=== PATIENT | male | born 1980 | race Caucasian/White ===

== ENCOUNTER 2025-05-12 10:52 | Emergency (ER) | payer BC ==
[~2025-05-12] VITALS: Ht 188 cm; Wt 86.2 kg
--- NOTE | 2025-05-12 11:04 | ERN ---
General Chief Complaint: Abdominal Pain Stated Complaint: LEFT DISTAL ABDOMINAL PAIN Time Seen by MD: 10:53 Time Seen by Midlevel: 10:53 Source: patient History of Present Illness Initial Comments The patient is a 44-year-old male presenting to the emergency department for evaluation of left lower quadrant abdominal pain. The patient reports noticing a hernia to his left lower quadrant that goes down to his groin area. He noticed this several months ago but it has progressively worsened. Today he reports increased pain after physical activity. He is currently refusing any controlled narcotics and admits to recently getting out of a drug rehabilitation program. Allergies: Coded Allergies: No Known Drug Allergies (Unverified Allergy, Unknown, 05/12/25) Past Medical History Past Medical History: COPD Medical History Other: HERNIA Past Surgical History: Other Surgical History Other: X2 HERNIA REPAIR IN YOUTH ROS Dictation CONSTITUTIONAL: Negative except for HPI HEAD/FACE: Negative except for HPI EENT: Negative except for HPI RESPIRATORY: Negative except for HPI GASTROINTESTINAL/ABDOMINAL: Negative except for HPI GENITOURINARY: Negative except for HPI MUSCULOSKELETAL: Negative except for HPI INTEGUMENTARY: Negative except for HPI NEUROLOGICAL/PSYCH: Negative except for HPI HEMATOLOGIC/LYMPHATIC: Negative except for HPI All Systems Negative, Except as noted above. 13 point review of systems assessed and all negative except for above. Physical Exam Physical Exam Dictation Vital Signs reviewed General Appearance: Alert, oriented x 3, no acute distress, well developed, nourished. Head and Face: non-traumatic. Eyes: PERRL, pink conjunctivas, eyelid no trauma, anterior chamber with arcus senilis. Ears: Pinnas intact and no signs of trauma or erythema ear canals clear and no discharge TM no erythema Nose: No discharge, no bleeding. Oropharynx: Mouth normal, tongue pink, pharynx clear,no erythema, tonsils no exudates, no abscesses noted, mucous membrane moist Neck: Supple, non-tender, no thyromegaly, no masses, no JVD, no bruits Breast:Deferred Chest:No tenderness, no crepitus, no paradoxical movement, no retractions Lungs:Clear, well-ventilated, symmetric, no rales, no wheezing, no rhonchi, no stridor, good breath sounds bilaterally Heart: Regular rate, regular rhythm, no murmur, no gallops Vascular: no peripheral edema, Abdomen: Soft, positive bowel sounds, nondistended, no guarding, Left lower quadrant abdominal tenderness, no rebound, no masses no hepatomegaly, no splenomegaly, no Kan's sign, left lower quadrant hernia extending to the l eft groin Rectal: Deferred Genital: Deferred Neurological: Normal speech, motor function intact, sensory function intact Musculoskeletal: Neck nontender, full range of motion, back nontender, full range of motion, Extremities: nontender, full range of motion Skin: Color pink, dry, no turgor, no rash, no lacerations, no abrasions, no contusions. Lymphatic: Deferred Results Laboratory and Microbiology Lab and Micro Result Laboratory Tests Test 05/12/25 11:03 05/12/25 11:15 White Blood Count 5.9 K/uL (4.8-10.8) Red Blood Count 4.37 MIL/uL (4.50-6.20) L Hemoglobin 14.4 g/dL (14.0-18.0) Hematocrit 41.8 % (42-54) L Mean Corpuscular Volume 95.7 fL (79-99) Mean Corpuscular Hemoglobin 33.0 pg (27.0-33.0) Mean Corpuscular Hemoglobin Concent 34.4 g/dL (32.0-36.0) Red Cell Distribution Width 13.1 % (11.0-15.5) Platelet Count 244 K/uL (130-400) Mean Platelet Volume 9.3 fL (7.5-10.5) Immature Granulocyte % (Auto) 0.3 % (0-1) Neutrophils (%) (Auto) 56.1 % (40.0-77.0) Lymphocytes (%) (Auto) 31.7 % (21.0-51.0) Monocytes (%) (Auto) 10.3 % (3.0-13.0) Eosinophils (%) (Auto) 1.3 % (0.0-8.0) Basophils (%) (Auto) 0.3 % (0.0-5.0) Neutrophils # (Auto) 3.3 K/uL (1.8-7.7) Lymphocytes # (Auto) 1.9 K/uL (1.0-4.8) Monocytes # (Auto) 0.6 K/uL (0.1-1.0) Eosinophils # (Auto) 0.08 K/uL (0.00-0.70) Basophils # (Auto) 0.02 K/uL (0.00-0.20) Absolute Immature Granulocyte (auto 0.02 K/uL (0-1) Nucleated Red Blood Cells 0.0 % (0.0-0.19) Sodium Level 139 mmol/L (136-145) Potassium Level 4.3 mmol/L (3.5-5.1) Chloride Level 104 mmol/L (101-111) Carbon Dioxide Level 31 mmol/L (21-32) Blood Urea Nitrogen 15 mg/dL (7-18) Creatinine 0.8 mg/dL (0.5-1.3) Glomerular Filtration Rate Calc 113 mL/min (>90) Random Glucose 90 mg/dL (70-105) Total Calcium 8.9 mg/dL (8.5-10.1) Urine Color COLORLESS (YELLOW) Urine Appearance CLEAR (CLEAR) Urine pH 7.5 (5.0-8.0) Urine Specific [place] 1.006 (1.001-1.031) Urine Protein NEGATIVE mg/dL (NEGATIVE) Urine Glucose (UA) NEGATIVE mg/dL (NEGATIVE) Urine Ketones NEGATIVE mg/dL (NEGATIVE) Urine Occult Blood +- (TRACE) (NEGATIVE) H Urine Nitrate NEGATIVE (NEGATIVE) Urine Bilirubin NEGATIVE mg/dL (NEGATIVE) Urine Urobilinogen 0.2 mg/dL (0.2-1.0) Urine Leukocyte Esterase NEGATIVE Jennifer/uL Urine RBC 2-5 /HPF (0-1) H Urine WBC 0-1 /HPF (0-1) Urine Bacteria None /HPF (None Seen) Labs Reviewed?: Yes MDM MDM: The patient is a 44-year-old male presenting to the emergency department for evaluation of left lower quadrant abdominal pain. The patient reports noticing a hernia to his left lower quadrant that goes down to his groin area. He noticed this several months ago but it has progressively worsened. Today he reports increased pain after physical activity. He is currently refusing any controlled narcotics and admits to recently getting out of a drug rehabilitation program. On physical examination there was an obvious bruise to his left groin area consistent with what appears to be a hernia. The hernia does not extend into the scrotal area. There was the remainder of his physical examination is unremarkable. A CT scan of the abdomen/pelvis reveals no hernia however on physical examination there is an apparent hernia. CT shows no evidence of strangulation. We will have patient follow up with General surgery outpatient. Differential diagnosis: There are no social concerns with this patient. Prescription drug management Prescriptions will include: Medical management and examination interpretation discussions were had by me with other qualified healthcare professionals as indicated for the patient's care. ED Course Orders Procedure Category Date Status Time Cbc With Differential LAB 05/12/25 Complete 10:57 Basic Metabolic Panel LAB 05/12/25 Complete 10:57 Urinalysis Profile LAB 05/12/25 Complete 10:57 Ct Abdomen/Pelvis CT 05/12/25 Resulted W/Contrast 10:57 Iohexol (Omnipaque) PHA 05/12/25 Complete 11:45 Current Medications Medications (Trade) Dose Ordered Sig/Lizbeth Route PRN Reason Start Time Stop Time Status Last Admin Dose Admin Iohexol (Omnipaque) 35,000 mg STK-MED ONCE IV 05/12/25 11:45 05/12/25 11:45 DC Vital Signs Date Time Temp Pulse Resp B/P (MAP) Pulse Ox O2 Delivery O2 Flow Rate FiO2 05/12/25 13:36 97.9 62 16 124/72 98 Room Air* 0 21 05/12/25 11:18 97.9 58 16 120/76 98 Room Air* 0 21 05/12/25 10:53 97.9 58 16 120/76 98 Room Air 0 DX & DISP Disposition: Discharge Departure Impression: Primary Impression: Left groin hernia Condition: Stable Referrals: SELF,REFERRAL (PCP) SHAUNNA OWENS MD Time of Disposition: 13:19 I have reviewed the case, and I agree with, Diagnosis and Plan I performed the substantive portion of the visit. I have reviewed and personally made and approve the management plan that is documented in the note by myself or the SELINA. I acknowledge for responsibility for the patient's management plan. ISIDORO GARCIA May 12, 2025 11:04
[2025-05-12 11:10] LABS: IMMATURE GRANULOCYTE ABSOLUTE 0.02 K/uL (0-1); NUCLEATED RED BLOOD CELLS 0.0 % (0.0-0.19); PLATELET COUNT (AUTO) 244 K/uL (130-400); RED BLOOD CELL COUNT(AUTO) 4.37 MIL/uL (4.50-6.20); RED CELL DISTRIBUTION WIDTH 13.1 % (11.0-15.5); WHITE BLOOD COUNT (AUTO) 5.9 K/uL (4.8-10.8)
[2025-05-12 11:17] LABS: CREATININE 0.8 mg/dL (0.5-1.3); GLOMERULAR FILTR. RATE CALC 113.0 mL/min (>90); GLUCOSE,RANDOM 90.0 mg/dL (70-105); SODIUM SERUM 139.0 mmol/L (136-145); UREA NITROGEN, BLOOD 15.0 mg/dL (7-18)
[2025-05-12 11:24] LABS: APPEARANCE,URINE CLEAR (CLEAR); GLUCOSE, URINE (UA) NEGATIVE (NEGATIVE); LEUKOCYTE ESTERASE ,URINE NEGATIVE Leu/uL (NEGATIVE); NITRATE,URINE NEGATIVE (NEGATIVE); OCCULT BLOOD,URINE +- (TRACE) (NEGATIVE)
[2025-05-12] MEDS ORDERED: IOHEXOL 350 MG/ML 100ML INFUS..BTL IV ONE (11:45)
[2025-05-12 11:55] LABS: ADD UA MICROSCOPIC YES
--- NOTE | 2025-05-12 12:45 | HMCIMG ---
EXAM: CT Abdomen and Pelvis with IV contrast CLINICAL HISTORY: LLQ abd pain, visible hernia, r/o incarcerated hernia TECHNIQUE: Axial computed tomography images of the abdomen and pelvis with intravenous contrast. CONTRAST: with intravenous contrast. COMPARISON: None provided. FINDINGS: FINDINGS: LUNG BASES: Subtle subpleural interlobular septal thickening involving the posterobasal segment of the bilateral lower lobes. No pleural effusions are seen. LIVER: The liver is enlarged; the right hepatic lobe measures up to 21 cm. There is no focal hepatic abnormality or intrahepatic biliary ductal dilatation Portal vein appears dilated, measuring approximately 20 mm at the celso. GALLBLADDE AND BILE DUCTS: The gallbladder appears within normal limits. No radioopaque gallstones are seen. No biliary ductal dilatation is evident. PANCREAS: Unremarkable. SPLEEN: Unremarkable. ADRENAL GLANDS: Unremarkable. KIDNEYS, URETERS, AND BLADDER: The kidneys appear within normal limits. There is no hydronephrosis or hydroureter. No urinary calculi are seen. STOMACH AND BOWEL: Unremarkable appearance of the stomach and bowel. No evidence of bowel obstruction. No evidence suggesting enteritis or colitis. There is no hernia present. PERITONEUM: No free fluid. No free air. LYMPH NODES: No lymphadenopathy is evident. REPRODUCTIVE: Unremarkable as visualized. VASCULATURE: No evidence of abdominal aortic aneurysm. 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 Diffuse disc bulge with postero-central disc protrusion at the L4-L5 intervertebral disc level, causing indentation over the anterior thecal sac and causing mild canal stenosis. Spinal canal diameter at the L4-L5 intervertebral disc level measures 9.5 mm and needs MRI correlation. No aggressive appearing osseous lesion. SOFT TISSUES: Unremarkable. IMPRESSION: No acute abdominal or pelvic pathology. No hernia. No soft tissue abnormality in the left lower quadrant to explain the reported hernia. Hepatomegaly with right hepatic lobe measuring up to 21 cm. Portal vein dilatation measuring 20 mm. /[place]
[2025-05-12 13:36] VITALS: BP 124/72; PULSE 62; RESP 16; TEMP 97.9; O2SAT 98
== END 2025-05-12 13:37 | disposition home or self-care (01) ==
LOC: EDH 10:52
DX: K40.90 Unilateral inguinal hernia, without obstruction or gangrene, not specified as recurrent (principal); Z98.890 Other specified postprocedural states
CPT/HCPCS: 99284; 74177; 80048; 85025; 81001; 36415; Q9967

== ENCOUNTER 2025-07-16 19:05 | Emergency (ER) | payer BC ==
[~2025-07-16] VITALS: Ht 188 cm; Wt 74.8 kg
--- NOTE | 2025-07-16 19:36 | ERN ---
General Chief Complaint: Psych Evaluation Stated Complaint: MEDICATION REFILL, DETOX Time Seen by MD: 19:18 Source: patient History of Present Illness Initial Comments 45-year-old male attempting to stay sober recently fell off the wagon and comes in after drinking and taking speed. Has recently completed an inpatient rehabilitation stay and stated that afterwards he could not refill his medications and started drinking. Allergies: Coded Allergies: No Known Drug Allergies (Unverified Allergy, Unknown, 05/12/25) Past Medical History Past Medical History: Bipolar, COPD, Schizophrenia, Other Medical History Other: HERNIA, PTSD, multisubstance abuse Past Surgical History: Other Surgical History Other: X2 HERNIA REPAIR IN YOUTH, JAW Constitutional: (-) chills, (-) diaphoresis, (-) fever, (-) malaise, (-) weakness, (-) other documentation EENTM: (-) eye pain, (-) blurred vision, (-) tearing, (-) double vision, (-) ear pain, (-) ear discharge, (-) nose pain, (-) nose congestion, (-) throat pain, (-) Throat swelling, (-) mouth pain, (-) tooth pain, (-) mouth swelling, (-) other documentation Respiratory: (-) cough, (-) orthopnea, (-) short of breath, (-) stridor, (-) wheezing, (-) other documentation Cardiovascular: (-) chest pain, (-) edema, (-) palpitations, (-) syncope, (-) dyspnea on exertion, (-) other documentation Gastrointestinal/Abdominal: (+) nausea, (+) vomiting, (+) diarrhea Genitourinary: (-) penile discharge, (-) dysuria, (-) frequency, (-) hematuria, (-) pain, (-) other documentation Musculoskeletal: (-) Neck pain, (-) back pain, (-) Flank Pain, (-) joint pain, (-) joint swelling, (-) muscle pain, (-) muscle stiffness, (-) gout, (-) other documentation Psych: (+) anxiety Physical Exam General Appearance: (+) moderate distress Orientation: (+) alert, (+) oriented x 3 Head/Face Trauma: No Eye: bilateral eye normal inspection, bilateral eye PERRL, bilateral eye EOMI Ear, Nose, Throat: (+) hearing grossly normal, (+) normal ENT inspection, (+) moist mucous membraine Neck: (+) normal inspection, (+) supple, (+) full range of motion Respiratory: (+) chest non-tender, (+) lungs clear, (+) well ventilated Heart: (+) regular, (+) no gallop Vascular: (+) no edema, (+) normal peripheral pulse Gastrointestinal: (+) soft, (+) non-tender, (+) bowel sound present Genital Comment Left inguinal hernia based on location it appears direct. Back: (+) normal inspection, (+) no CVA tenderness Extremities: (+) normal range of motion Results Laboratory and Microbiology Lab and Micro Result Laboratory Tests Test 07/16/25 19:36 07/16/25 19:44 Urine Color LIGHT-YELLOW (YELLOW) Urine Appearance CLEAR (CLEAR) Urine pH 6.5 (5.0-8.0) Urine Specific [place] 1.012 (1.001-1.031) Urine Protein NEGATIVE mg/dL (NEGATIVE) Urine Glucose (UA) NEGATIVE mg/dL (NEGATIVE) Urine Ketones NEGATIVE mg/dL (NEGATIVE) Urine Occult Blood +- (TRACE) (NEGATIVE) H Urine Nitrate NEGATIVE (NEGATIVE) Urine Bilirubin NEGATIVE mg/dL (NEGATIVE) Urine Urobilinogen 0.2 mg/dL (0.2-1.0) Urine Leukocyte Esterase NEGATIVE Jennifer/uL Urine RBC 2-5 /HPF (0-1) H Urine WBC 0-1 /HPF (0-1) Urine Bacteria None /HPF (None Seen) Urine Opiates Screen NEGATIVE (NEGATIVE) Urine Barbiturates Screen NEGATIVE (NEGATIVE) Urine Phencyclidine Screen NEGATIVE (NEGATIVE) Urine Amphetamines Screen POSITIVE (NEGATIVE) H Urine Benzodiazepines Screen NEGATIVE (NEGATIVE) Urine Cocaine Screen NEGATIVE (NEGATIVE) Urine Marijuana (THC) Screen POSITIVE (NEGATIVE) H White Blood Count 6.3 K/uL (4.8-10.8) Red Blood Count 4.70 MIL/uL (4.50-6.20) Hemoglobin 15.6 g/dL (14.0-18.0) Hematocrit 44.4 % (42-54) Mean Corpuscular Volume 94.5 fL (79-99) Mean Corpuscular Hemoglobin 33.2 pg (27.0-33.0) H Mean Corpuscular Hemoglobin Concent 35.1 g/dL (32.0-36.0) Red Cell Distribution Width 13.5 % (11.0-15.5) Platelet Count 371 K/uL (130-400) Mean Platelet Volume 8.9 fL (7.5-10.5) Immature Granulocyte % (Auto) 0.2 % (0-1) Neutrophils (%) (Auto) 59.7 % (40.0-77.0) Lymphocytes (%) (Auto) 29.7 % (21.0-51.0) Monocytes (%) (Auto) 8.6 % (3.0-13.0) Eosinophils (%) (Auto) 1.3 % (0.0-8.0) Basophils (%) (Auto) 0.5 % (0.0-5.0) Neutrophils # (Auto) 3.8 K/uL (1.8-7.7) Lymphocytes # (Auto) 1.9 K/uL (1.0-4.8) Monocytes # (Auto) 0.5 K/uL (0.1-1.0) Eosinophils # (Auto) 0.08 K/uL (0.00-0.70) Basophils # (Auto) 0.03 K/uL (0.00-0.20) Absolute Immature Granulocyte (auto 0.01 K/uL (0-1) Nucleated Red Blood Cells 0.0 % (0.0-0.19) Sodium Level 139 mmol/L (136-145) Potassium Level 3.7 mmol/L (3.5-5.1) Chloride Level 100 mmol/L (101-111) L Carbon Dioxide Level 29 mmol/L (21-32) Blood Urea Nitrogen 14 mg/dL (7-18) Creatinine 0.9 mg/dL (0.5-1.3) Glomerular Filtration Rate Calc 108 mL/min (>90) Random Glucose 95 mg/dL (70-105) Total Calcium 9.2 mg/dL (8.5-10.1) Magnesium Level 2.10 mg/dL (1.80-2.40) Total Bilirubin 0.4 mg/dL (0.2-1.0) Aspartate Amino Transf (AST/SGOT) 72 U/L (10-37) H Alanine Aminotransferase (ALT/SGPT) 45 U/L (12-78) Alkaline Phosphatase 113 U/L (50-136) Total Protein 7.2 g/dL (6.0-8.3) Albumin 3.9 g/dL (3.5-5.0) Lipase 36 U/L (16-77) Salicylates Level < 2.8 mg/dL (2.8-20.0) L Acetaminophen Level < 1 mcg/mL (10-29) L Serum Alcohol < 3 mg/dL (0-10) MDM Alcohol abuse methamphetamine abuse by history. We will order the usual labs, tox screen. IV fluids, thiamine folate, CMP CBC UA lipase. Patient's CBC is normal. Chemistry panel shows a mild hypochloremia and a mild elevation of the AST lipase is normal other LFTs are normal bilirubin is normal. Urine is negative for infection there is a little bit of blood in it. And serum alcohol is less than three, salicylates are negative acetaminophen is negative as well. Positive for THC positive for amphetamines. Patient is medically cleared to go to a rehab facility. We have called [facility] which is one block away they have some more admission. I have told the patient that he can walk two palms and check himself in. ED Course Orders Procedure Category Date Status Time Acetaminophen LAB 07/16/25 Complete 19:27 Alcohol, Blood LAB 07/16/25 Complete 19:27 Comprehensive LAB 07/16/25 Complete Metabolic Panel 19:27 Cbc With Differential LAB 07/16/25 Complete 19:27 Drug Screen Urine LAB 07/16/25 Complete 19:27 Magnesium LAB 07/16/25 Complete 19:27 Urinalysis Profile LAB 07/16/25 Complete 19:27 Lipase LAB 07/16/25 Complete 19:27 Thiamine Hcl (Vitamin PHA 07/17/25 Complete B-1) 09:00 Folic Acid 5 Mg/Ml PHA 07/16/25 Complete Vial (Folvite 5 Mg/Ml 19:30 Lactated Ringers PHA 07/16/25 Complete 1000ml (Lactated 19:27 Salicylate LAB 07/16/25 Complete 19:27 Thiamine Hcl (Vitamin PHA 07/16/25 In Process B-1) 20:00 Current Medications Medications (Trade) Dose Ordered Sig/Lizbeth Route PRN Reason Start Time Stop Time Status Last Admin Dose Admin Folic Acid (FolVITE 5 MG/ML VIAL) 1 mg ONCE ONCE IV 07/16/25 19:30 07/16/25 19:35 DC 07/16/25 20:05 Lactated Ringer's (Lactated Ringers 1000ml) 1,000 ml BOLUS STAT IV 07/16/25 19:27 07/16/25 19:34 DC 07/16/25 20:05 Thiamine HCl (Vitamin B-1) 100 mg DAILY IVP 07/16/25 20:00 08/15/25 19:59 07/16/25 20:06 Thiamine HCl (Vitamin B-1) 100 mg DAILY IVP 07/17/25 09:00 07/16/25 19:58 DC Vital Signs Date Time Temp Pulse Resp B/P (MAP) Pulse Ox O2 Delivery O2 Flow Rate FiO2 07/16/25 19:22 97.5 80 22 122/80 98 Room Air* 0 21 07/16/25 19:06 97.9 79 18 132/75 98 Room Air DX & DISP Disposition: Discharge Departure Impression: Primary Impression: Alcohol abuse Additional Impressions: Methamphetamine abuse, Tetrahydrocannabinol (THC) use disorder, mild, abuse Condition: Stable Additional Instructions: You have express pit and desire for rehabilitation from alcohol abuse. Your also stating that you are hearing things and seeing demons suggesting that your schizophrenia is active. I have done a laboratory analysis and you are medically cleared to go to rehab. I will discharge you from the emergency room and all you need to do is walk one block to [facility] and they will accept you. Please return to the emergency room if you find yourself abusing substances again or if you schizophrenia is unmanageable. Referrals: SELF,REFERRAL (PCP) AJ ESPARZA MD Jul 16, 2025 19:36
[2025-07-16 19:46] LABS: APPEARANCE,URINE CLEAR (CLEAR); GLUCOSE, URINE (UA) NEGATIVE (NEGATIVE); LEUKOCYTE ESTERASE ,URINE NEGATIVE Leu/uL (NEGATIVE); NITRATE,URINE NEGATIVE (NEGATIVE); OCCULT BLOOD,URINE +- (TRACE) (NEGATIVE)
[2025-07-16 19:47] LABS: ADD UA MICROSCOPIC YES
[2025-07-16 19:50] LABS: IMMATURE GRANULOCYTE ABSOLUTE 0.01 K/uL (0-1); NUCLEATED RED BLOOD CELLS 0.0 % (0.0-0.19); PLATELET COUNT (AUTO) 371 K/uL (130-400); RED BLOOD CELL COUNT(AUTO) 4.70 MIL/uL (4.50-6.20); RED CELL DISTRIBUTION WIDTH 13.5 % (11.0-15.5); WHITE BLOOD COUNT (AUTO) 6.3 K/uL (4.8-10.8)
[2025-07-16 19:53] LABS: AMPHET/METH SCREEN,URINE POSITIVE (NEGATIVE); BARBITURATE SCREEN, URINE NEGATIVE (NEGATIVE); CANNABINOID SCREEN,URINE POSITIVE (NEGATIVE); COCAINE SCREEN,URINE NEGATIVE (NEGATIVE)
[2025-07-16 20:00] LABS: CREATININE 0.9 mg/dL (0.5-1.3); GLOMERULAR FILTR. RATE CALC 108 mL/min (>90); GLUCOSE,RANDOM 95 mg/dL (70-105); SODIUM SERUM 139 mmol/L (136-145); UREA NITROGEN, BLOOD 14 mg/dL (7-18)
[2025-07-16 20:04] LABS: ALCOHOL, BLOOD < 3 mg/dL (0-10); ASPARTATE AMINOTRANSFERASE 72 U/L (10-37); TOTAL PROTEIN, SERUM 7.2 g/dL (6.0-8.3)
[2025-07-16] MEDS: LACTATED RINGERS 1000ML IV STA (20:05)
[2025-07-16] MEDS: THIAMINE HCL 100 MG/ML 2ML VIAL IVP SCH (20:06)
[2025-07-16] MEDS: MIDAZOLAM HCL SYRUP 10 MG/5 ML 5ML BOTTLE PO ONE (21:38)
[2025-07-16 23:25] VITALS: BP 118/70; PULSE 68; RESP 22; TEMP 97.8; O2SAT 98
[2025-07-17] MEDS ORDERED: THIAMINE HCL 100 MG/ML 2ML VIAL IVP SCH (09:00)
== END 2025-07-16 23:48 | disposition home or self-care (01) ==
LOC: EDH 19:05
DX: F10.10 Alcohol abuse, uncomplicated (principal); F12.10 Cannabis abuse, uncomplicated; F15.10 Other stimulant abuse, uncomplicated; J44.9 Chronic obstructive pulmonary disease, unspecified; F20.9 Schizophrenia, unspecified; F31.9 Bipolar disorder, unspecified; Z98.890 Other specified postprocedural states
CPT/HCPCS: 99284; 96374; 96361; 96375; 83735; 80053; 80305; 83690; 85025; 36415; 81001; G0481; J7120; J3411; J3490